=== PATIENT | female | born 1970 | race Caucasian/White ===

== ENCOUNTER 2022-08-16 14:26 | Emergency (ER) | payer OTHER ==
[~2022-08-16] VITALS: Ht 152.4 cm; Wt 67.7 kg
[2022-08-16 14:50] LABS: BASOPHILS % 0.6 % (0.0-2.0); EOSINOPHILS % 2.7 % (0.0-5.0); HEMOGLOBIN. 13.6 g/dL (12.0-16.0); LYMPHOCYTES % 39.6 % (20.0-50.0); MEAN CORPUSCULAR HEMOGLOBIN 33.3 pg (28.0-32.0); MEAN CORPUSCULAR VOLUME 95.5 fL (81.0-99.0); MEAN PLATELET VOLUME 8.1 fl (7.4-10.4); MONOCYTES % 6.9 % (2.0-8.0); NEUTROPHILS % 50.2 % (40.0-76.0); PLATELET 224 x1000/uL (130-400); RED BLOOD CELL COUNT 4.08 mill/uL (4.2-5.4); RED CELL DISTRIBUTION WIDTH 12.8 % (11.6-14.6)
[2022-08-16 14:59] LABS: CHLORIDE 110 mEq/L (98-107)
[2022-08-16 16:23] VITALS: BP 109/43
[2022-08-16 19:34] LABS: CLARITY URINE CLEAR (CLEAR); COLOR URINE YELLOW (YELLOW); KETONES URINE NEGATIVE (NEGATIVE); LEUKOCYTE ESTERASE URINE NEGATIVE (NEGATIVE); NITRITE URINE POSITIVE (NEGATIVE); OCCULT BLOOD URINE 1+ (NEGATIVE); PH URINE 6.5 (4.5-8.0); PROTEIN URINE NEGATIVE (NEGATIVE); SPECIFIC GRAVITY URINE 1.021 (1.005-1.030)
[2022-08-16] MEDS ORDERED: IBUPROFEN 600MG TABLET PO ONE (21:15)
[2022-08-16] MEDS ORDERED: IBUP-2029 MT (22:00)
[2022-08-16] MEDS ORDERED: CEPH500C2 MT (22:00)
== END 2022-08-16 22:22 | disposition home or self-care (01) ==
LOC: ER 14:26
DX: R07.89 Other chest pain (principal); N30.90 Cystitis, unspecified without hematuria; Z90.49 Acquired absence of other specified parts of digestive tract; W01.0XXA Fall on same level from slipping, tripping and stumbling without subsequent striking against object, initial encounter; Y93.89 Activity, other specified; Y92.89 Other specified places as the place of occurrence of the external cause; Y99.8 Other external cause status
CPT/HCPCS: 36415; 71045; 73560; 80053; 81003; 84484; 85025; 93005; 99285